=== PATIENT | female | born 1945 | race Caucasian/White ===

== ENCOUNTER 2017-09-16 12:32 | Emergency (ER) | payer OTHER ==
[~2017-09-16] VITALS: Ht 152.4 cm; Wt 108.9 kg
[2017-09-16] MEDS ORDERED: NORVASC2.5 M1 (12:54)
[2017-09-16] MEDS ORDERED: ZOCOR5 MG (12:54)
[2017-09-16] MEDS ORDERED: LEVO-T75 MCG (12:54)
[2017-09-16] MEDS ORDERED: VASOTEC5 MG (12:54)
[2017-09-16] MEDS ORDERED: BACTRIM DS TAB1 EACH PO (18:21)
== END 2017-09-16 19:52 | disposition home or self-care (01) ==
LOC: ER 12:32
DX: N30.80 Other cystitis without hematuria (principal); R10.31 Right lower quadrant pain

== ENCOUNTER 2018-01-02 16:39 | Outpatient (CLI) | payer OTHER ==
[~2018-01-02 16:39] MED LIST: BACTRIM DS TAB1 EACH PO; LEVO-T75 MCG; NORVASC2.5 M1; VASOTEC5 MG; ZOCOR5 MG
== END 2018-01-02 16:44 | disposition home or self-care (01) ==
LOC: RAD 16:39
DX: Z12.31 Encounter for screening mammogram for malignant neoplasm of breast (principal); Z87.898 Personal history of other specified conditions; Z12.11 Encounter for screening for malignant neoplasm of colon; E04.1 Nontoxic single thyroid nodule; M25.562 Pain in left knee